=== PATIENT | male | born 1980 | race Caucasian/White ===

== ENCOUNTER 2016-06-30 13:44 | Emergency (ER) | payer OTHER ==
[2016-06-30 15:33] LABS: BASO # 0.1 K/mm3 (0.0-0.2); BASO % 1.6 % (0.0-1.0); EOS # 0.2 K/mm3 (0.0-0.50); EOS % 2.7 % (0.0-3.0); LARGE UNSTAINED CELL # 0.2 K/mm3 (0.0-0.4); LARGE UNSTAINED CELL % 3.4 % (0.0-4.0); LYMPH # 1.8 K/mm3 (1.5-4.5); LYMPH % 21.3 % (24.0-44.0); MEAN CORPUSCULAR HEMOGLOBIN 31.4 pg (27.0-33.0); MEAN CORPUSCULAR HGB CONC 33.2 g/dl (32.0-36.5); MEAN CORPUSCULAR VOLUME 94.5 fl (80.0-96.0); MONO # 0.6 K/mm3 (0.0-0.8); MONO % 8.7 % (0.0-5.0); NEUTROPHILS # 4.5 K/mm3 (1.8-7.7); NEUTROPHILS % 62.4 % (36.0-66.0); PLATELET COUNT, AUTOMATED 263 k/mm3 (150-450); RED CELL DISTRIBUTION WIDTH 13.9 % (11.5-14.5); WHITE BLOOD COUNT 7.1 K/mm3 (4.0-10.0)
--- NOTE | 2016-06-30 16:31 | EDDOCDS ---
Nurse's Notes [facility] Name: Jorge Elder Age: 35 yrs Sex: Male : 1980 Arrival Date: 06/30/2016 Time: 13:44 Bed PR Private MD: Unknown, Family Dr Diagnosis: Pruritus Presentation: 06/30 13:48 Presenting complaint: Patient states: Last couple of days was staying with a friend and [facility] has bug bites on head and legs. Onset: The symptoms/episode began/occurred 2 day(s) ago. This patient has not experienced a previous allergic reaction. Anaphylaxis evaluation, the patient reports or I have noted the following symptoms which indicate a significant risk of anaphylaxis: no signs or symptoms of anaphylaxis were noted. Adult Sepsis Screening: The patient does not have new or worsening altered mentation. Patient's respiratory rate is less than 22. Systolic blood pressure is greater than 100. Patient has a qSOFA score of 0- Negative Sepsis Screen. Suicide/Homicide risk assessment- the patient denies having any suicidal and/or homicidal ideations and does not present with any other emotional, behavioral or mental health complaints. Status: Patient is not a business services officer or dependent. Transition of care: patient was not received from another setting of care. 13:48 Acuity: KIM Level 4 [facility] 13:48 Method Of Arrival: Walkin/Carried/Asstd [facility] Triage Assessment: 13:50 General: Appears in no apparent distress, Behavior is cooperative. Pain: Denies pain. [facility] HIV screening NA for this visit Offered previously. Neurological: No deficits noted. Respiratory: Airway is patent Respiratory effort is even, unlabored, Reports no respiratory complaints. Derm: Skin is pink, warm & dry. Rash noted that is red, raised, on head. Historical: - Allergies: no known allergies; - Home Meds: 1. none - PMHx: none; - PSHx: Hernia repair; - Social history: Smoking status: Patient uses tobacco products, light tobacco smoker. No barriers to communication noted, The patient speaks fluent Brazilian. - Family history: Not pertinent. - : The pt / caregiver states he / she is not on anticoagulants. Home medication list is obtained from the patient. - Exposure Risk Screening:: None identified. Screenin:27 Screening information is obtained from the patient. Fall risk: No risks identified. dls Assistance ADL's: requires no assistance with activities of daily living. Abuse/DV Screen: The patient / caregiver reports he/she is: not in a situation that causes fear, pain or injury. Nutritional screening: No deficits noted. Advance Directives: Currently, there is no health care proxy. There is no active DNR order. There is no living will. There is no Power of Warehouse Production Worker. Advance directive information has not previously been placed in an [facility] medical record. home support is adequate. Assessment: 16:27 Respiratory: No deficits noted. dls 16:28 General: Appears in no apparent distress, Behavior is cooperative. Pain: Denies pain. dls Awake, alert, oriented. Skin warm and dry. Moves all extremities. Bilateral breath sounds clear. Respirations unlabored. Abdomen soft, non-tender. No apparent distress. The patient / caregiver is instructed regarding the plan of care and ED course. Physical assessment to be completed by KAMARI/CHRISTINA. Vital Signs: 13:46 BP 156 / 90; Pulse 101; Resp 18 S; Temp 97.1; Pulse Ox 100% on R/A; Weight 77.11 kg dd6 (R); Height 5 ft. 10 in. (177.80 cm) (R); 13:46 Body Mass Index 24.39 (77.11 kg, 177.80 cm) dd6 Vitals: 13:46 Log In Time: June 30, 2016 at 13:44. dd6 ED Course: 13:46 Patient visited by Cayetano Eaton PCA. dd6 13:46 Unknown, Family Dr is Private Physician. dd6 13:46 Patient moved to Waiting dd6 13:47 Patient moved to Pre RCE dd6 13:49 Triage Initiated mcp 13:50 Patient visited by Graciela Krishna RN. [facility] 14:53 Patient moved to Triage 1 dls 15:05 Tyler Hamilton PA-C is PHCP. jk8 15:06 Hitesh Gibson MD is Attending Physician. jk8 15:06 Patient visited by Tyler Hamilton PA-C. jk8 15:22 CBC with Diff Sent. ar3 15:23 Patient moved to TR3 ar3 16:21 Patient moved to PR2 / 26 jo3 16:27 The patient / caregiver is instructed regarding the plan of care and ED course. Patient dls has correct armband on for positive identification. Bed in low position. Call light in reach. 16:27 No IV's were initiated during this patient's visit. No procedures done that require dls assistance. Order Results: Lab Order: CBC with Diff; SPEC'M 06/30/16 15:21 Test: WHITE BLOOD COUNT; Value: 7.1; Range: 4.0-10.0; Units: K/mm3; Status: F Test: RED BLOOD COUNT; Value: 4.53; Range: 4.30-6.10; Units: M/mm3; Status: F Test: HEMOGLOBIN; Value: 14.2; Range: 14.0-18.0; Units: g/dl; Status: F Test: HEMATOCRIT; Value: 42.8; Range: 42.0-52.0; Units: %; Status: F Test: MEAN CORPUSCULAR VOLUME; Value: 94.5; Range: 80.0-96.0; Units: fl; Status: F Test: MEAN CORPUSCULAR HEMOGLOBIN; Value: 31.4; Range: 27.0-33.0; Units: pg; Status: F Test: MEAN CORPUSCULAR HGB CONC; Value: 33.2; Range: 32.0-36.5; Units: g/dl; Status: F Test: RED CELL DISTRIBUTION WIDTH; Value: 13.9; Range: 11.5-14.5; Units: %; Status: F Test: PLATELET COUNT, AUTOMATED; Value: 263; Range: 150-450; Units: k/mm3; Status: F Test: NEUTROPHILS %; Value: 62.4; Range: 36.0-66.0; Units: %; Status: F Test: LYMPH %; Value: 21.3; Range: 24.0-44.0; Abnormal: Below low normal; Units: %; Status: F Test: MONO %; Value: 8.7; Range: 0.0-5.0; Abnormal: Above high normal; Units: %; Status: F Test: EOS %; Value: 2.7; Range: 0.0-3.0; Units: %; Status: F Test: BASO %; Value: 1.6; Range: 0.0-1.0; Abnormal: Above high normal; Units: %; Status: F Test: LARGE UNSTAINED CELL %; Value: 3.4; Range: 0.0-4.0; Units: %; Status: F Test: NEUTROPHILS #; Value: 4.5; Range: 1.8-7.7; Units: K/mm3; Status: F Test: LYMPH #; Value: 1.8; Range: 1.5-4.5; Units: K/mm3; Status: F Test: MONO #; Value: 0.6; Range: 0.0-0.8; Units: K/mm3; Status: F Test: EOS #; Value: 0.2; Range: 0.0-0.50; Units: K/mm3; Status: F Test: BASO #; Value: 0.1; Range: 0.0-0.2; Units: K/mm3; Status: F Test: LARGE UNSTAINED CELL #; Value: 0.2; Range: 0.0-0.4; Units: K/mm3; Status: F Outcome: 16:15 Discharge ordered by Provider. jk8 16:29 The following High Risk Discharge criteria are identified: None. Discharged to home dls ambulatory. Condition: stable. Discharge instructions given to patient, Instructed on discharge instructions, follow up and referral plans. medication usage, Demonstrated understanding of instructions, medications, Pt was receptive of discharge instructions/ teaching. Prescriptions given X 2. No special radiology studies were completed. 16:29 Discharge Assessment: Patient awake, alert and oriented x 3. No cognitive and/or dls functional deficits noted. Patient verbalized understanding of disposition instructions. patient administered narcotics - no. Property sent home with patient. 16:30 Patient left the ED. dls Signatures: Graciela Krishna RN RN mcp Scott, Debra, RN RN dls Helmerci, Jennifer, RN RN jo3 Cayetano Eaton, ASSISTANT FILM EDITOR ASSISTANT FILM EDITOR dd6 Mary Godinez, ASSISTANT FILM EDITOR ASSISTANT FILM EDITOR ar3 Tyler Hamilton PA-C PA-C jk8 MTDD
--- NOTE | 2016-06-30 16:31 | EDDOCDS ---
Physician Documentation [facility] Name: Jorge Elder Age: 35 yrs Sex: Male : 1980 Arrival Date: 06/30/2016 Time: 13:44 Bed PR Private MD: Unknown, Family Dr Disposition: 06/30/16 16:15 Discharged to Home/Self Care. Impression: Pruritus. - Condition is Stable. - Discharge Instructions: Scabies, Moderate Sedation. - Prescriptions for Elimite 5 % Topical Cream - apply 1 application by TOPICAL route one time Wash after 12 hours.; 60 gram. diphenhydramine HCl 50 mg Oral Capsule - take 1 capsule by ORAL route every 6 hours As needed; 30 capsule. - Medication Reconciliation, Local Pharmacy Hours form. - Follow up: Emergency Department; When: As soon as possible; Reason: Worsening of conditions. Follow up: Private Physician; When: 2 - 3 days; Reason: Recheck today's complaints. - Problem is new. - Symptoms are unchanged. Historical: - Allergies: no known allergies; - Home Meds: 1. none - PMHx: none; - PSHx: Hernia repair; - Social history: Smoking status: Patient uses tobacco products, light tobacco smoker. No barriers to communication noted, The patient speaks fluent Northern Irish. - Family history: Not pertinent. - : The pt / caregiver states he / she is not on anticoagulants. Home medication list is obtained from the patient. - Exposure Risk Screening:: None identified. Vital Signs: 06/30 13:46 BP 156 / 90; Pulse 101; Resp 18 S; Temp 97.1; Pulse Ox 100% on R/A; Weight 77.11 kg / dd6 170 lbs (R); Height 5 ft. 10 in. (177.80 cm) (R); 13:46 Body Mass Index 24.39 (77.11 kg, 177.80 cm) dd6 MDM: 15:14 CBC with Diff Ordered. EDMS 16:14 CBC with Diff Reviewed. jk8 16:27 Financial registration complete. kf3 Signatures: Dispatcher [employer] EDMS Graciela Krishna RN RN mcp Scott, Debra, RN RN dls FidElver calvo, Reg Reg kf3 Tyler Hamilton PA-C PA-C jk8 MTDD
--- NOTE | 2016-07-02 17:31 | EDDOCDS ---
Physician Documentation [facility] Name: Jorge Elder Age: 35 yrs Sex: Male : 1980 Arrival Date: 06/30/2016 Time: 13:44 Bed PR Private MD: Unknown, Family Dr Disposition: 06/30/16 16:15 Discharged to Home/Self Care. Impression: Pruritus. - Condition is Stable. - Discharge Instructions: Scabies, Moderate Sedation. - Prescriptions for Elimite 5 % Topical Cream - apply 1 application by TOPICAL route one time Wash after 12 hours.; 60 gram. diphenhydramine HCl 50 mg Oral Capsule - take 1 capsule by ORAL route every 6 hours As needed; 30 capsule. - Medication Reconciliation, Local Pharmacy Hours form. - Follow up: Emergency Department; When: As soon as possible; Reason: Worsening of conditions. Follow up: Private Physician; When: 2 - 3 days; Reason: Recheck today's complaints. - Problem is new. - Symptoms are unchanged. Historical: - Allergies: no known allergies; - Home Meds: 1. none - PMHx: none; - PSHx: Hernia repair; - Social history: Smoking status: Patient uses tobacco products, light tobacco smoker. No barriers to communication noted, The patient speaks fluent Salvadorean. - Family history: Not pertinent. - : The pt / caregiver states he / she is not on anticoagulants. Home medication list is obtained from the patient. - Exposure Risk Screening:: None identified. Vital Signs: 06/30 13:46 BP 156 / 90; Pulse 101; Resp 18 S; Temp 97.1; Pulse Ox 100% on R/A; Weight 77.11 kg / dd6 170 lbs (R); Height 5 ft. 10 in. (177.80 cm) (R); 13:46 Body Mass Index 24.39 (77.11 kg, 177.80 cm) dd6 MDM: 15:14 CBC with Diff Ordered. EDMS 16:14 CBC with Diff Reviewed. jk8 16:27 Financial registration complete. kf3 16:57 [facility] Payment Agreement was scanned into [employer] and attached to record. kf3 21:34 T-Sheet-- Draft Copy was scanned into [employer] and attached to record. klr Signatures: Dispatcher [employer] EDMS KrishnaGraciela RN RN mcp Scott, Debra, RN RN dls Fiddler, Kris, Reg Reg kf3 Tyler Hamilton PA-C PA-C jk8 Redder, Kathie klr The chart was reviewed and I authenticate all verbal orders and agree with the evaluation and treatment provided.Attachments: 16:57 [facility] Payment Agreement kf3 21:34 T-Sheet-- Draft Copy klr Chart Complete MTDD
--- NOTE | 2016-07-02 17:31 | EDDOCDS ---
Nurse's Notes [facility] Name: Jorge Elder Age: 35 yrs Sex: Male : 1980 Arrival Date: 06/30/2016 Time: 13:44 Bed PR Private MD: Unknown, Family Dr Diagnosis: Pruritus Presentation: 06/30 13:48 Presenting complaint: Patient states: Last couple of days was staying with a friend and [facility] has bug bites on head and legs. Onset: The symptoms/episode began/occurred 2 day(s) ago. This patient has not experienced a previous allergic reaction. Anaphylaxis evaluation, the patient reports or I have noted the following symptoms which indicate a significant risk of anaphylaxis: no signs or symptoms of anaphylaxis were noted. Adult Sepsis Screening: The patient does not have new or worsening altered mentation. Patient's respiratory rate is less than 22. Systolic blood pressure is greater than 100. Patient has a qSOFA score of 0- Negative Sepsis Screen. Suicide/Homicide risk assessment- the patient denies having any suicidal and/or homicidal ideations and does not present with any other emotional, behavioral or mental health complaints. Status: Patient is not a community service worker or dependent. Transition of care: patient was not received from another setting of care. 13:48 Acuity: KIM Level 4 [facility] 13:48 Method Of Arrival: Walkin/Carried/Asstd [facility] Triage Assessment: 13:50 General: Appears in no apparent distress, Behavior is cooperative. Pain: Denies pain. [facility] HIV screening NA for this visit Offered previously. Neurological: No deficits noted. Respiratory: Airway is patent Respiratory effort is even, unlabored, Reports no respiratory complaints. Derm: Skin is pink, warm & dry. Rash noted that is red, raised, on head. Historical: - Allergies: no known allergies; - Home Meds: 1. none - PMHx: none; - PSHx: Hernia repair; - Social history: Smoking status: Patient uses tobacco products, light tobacco smoker. No barriers to communication noted, The patient speaks fluent Monegasque. - Family history: Not pertinent. - : The pt / caregiver states he / she is not on anticoagulants. Home medication list is obtained from the patient. - Exposure Risk Screening:: None identified. Screenin:27 Screening information is obtained from the patient. Fall risk: No risks identified. dls Assistance ADL's: requires no assistance with activities of daily living. Abuse/DV Screen: The patient / caregiver reports he/she is: not in a situation that causes fear, pain or injury. Nutritional screening: No deficits noted. Advance Directives: Currently, there is no health care proxy. There is no active DNR order. There is no living will. There is no Power of Partition Notcher. Advance directive information has not previously been placed in an [facility] medical record. home support is adequate. Assessment: 16:27 Respiratory: No deficits noted. dls 16:28 General: Appears in no apparent distress, Behavior is cooperative. Pain: Denies pain. dls Awake, alert, oriented. Skin warm and dry. Moves all extremities. Bilateral breath sounds clear. Respirations unlabored. Abdomen soft, non-tender. No apparent distress. The patient / caregiver is instructed regarding the plan of care and ED course. Physical assessment to be completed by KAMARI/CHRISTINA. Vital Signs: 13:46 BP 156 / 90; Pulse 101; Resp 18 S; Temp 97.1; Pulse Ox 100% on R/A; Weight 77.11 kg dd6 (R); Height 5 ft. 10 in. (177.80 cm) (R); 13:46 Body Mass Index 24.39 (77.11 kg, 177.80 cm) dd6 Vitals: 13:46 Log In Time: June 30, 2016 at 13:44. dd6 ED Course: 13:46 Patient visited by Cayetano Eaton PCA. dd6 13:46 Unknown, Family Dr is Private Physician. dd6 13:46 Patient moved to Waiting dd6 13:47 Patient moved to Pre RCE dd6 13:49 Triage Initiated mcp 13:50 Patient visited by Graciela Krishna RN. [facility] 14:53 Patient moved to Triage 1 dls 15:05 Tyler Hamilton PA-C is PHCP. jk8 15:06 Hitesh Gibson MD is Attending Physician. jk8 15:06 Patient visited by Tyler Hamilotn PA-C. jk8 15:22 CBC with Diff Sent. ar3 15:23 Patient moved to TR3 ar3 16:21 Patient moved to PR2 / 26 jo3 16:27 The patient / caregiver is instructed regarding the plan of care and ED course. Patient dls has correct armband on for positive identification. Bed in low position. Call light in reach. 16:27 No IV's were initiated during this patient's visit. No procedures done that require dls assistance. 16:55 Patient name changed from Jorge\Frederick\\S\Compoli\S\ to Jorge\S\Josue\S\Compoli. EDMS 16:57 [facility] Payment Agreement was scanned into [employer] and attached to record. kf3 21:34 T-Sheet-- Draft Copy was scanned into [employer] and attached to record. klr Order Results: Lab Order: CBC with Diff; SPEC'M 06/30/16 15:21 Test: WHITE BLOOD COUNT; Value: 7.1; Range: 4.0-10.0; Units: K/mm3; Status: F Test: RED BLOOD COUNT; Value: 4.53; Range: 4.30-6.10; Units: M/mm3; Status: F Test: HEMOGLOBIN; Value: 14.2; Range: 14.0-18.0; Units: g/dl; Status: F Test: HEMATOCRIT; Value: 42.8; Range: 42.0-52.0; Units: %; Status: F Test: MEAN CORPUSCULAR VOLUME; Value: 94.5; Range: 80.0-96.0; Units: fl; Status: F Test: MEAN CORPUSCULAR HEMOGLOBIN; Value: 31.4; Range: 27.0-33.0; Units: pg; Status: F Test: MEAN CORPUSCULAR HGB CONC; Value: 33.2; Range: 32.0-36.5; Units: g/dl; Status: F Test: RED CELL DISTRIBUTION WIDTH; Value: 13.9; Range: 11.5-14.5; Units: %; Status: F Test: PLATELET COUNT, AUTOMATED; Value: 263; Range: 150-450; Units: k/mm3; Status: F Test: NEUTROPHILS %; Value: 62.4; Range: 36.0-66.0; Units: %; Status: F Test: LYMPH %; Value: 21.3; Range: 24.0-44.0; Abnormal: Below low normal; Units: %; Status: F Test: MONO %; Value: 8.7; Range: 0.0-5.0; Abnormal: Above high normal; Units: %; Status: F Test: EOS %; Value: 2.7; Range: 0.0-3.0; Units: %; Status: F Test: BASO %; Value: 1.6; Range: 0.0-1.0; Abnormal: Above high normal; Units: %; Status: F Test: LARGE UNSTAINED CELL %; Value: 3.4; Range: 0.0-4.0; Units: %; Status: F Test: NEUTROPHILS #; Value: 4.5; Range: 1.8-7.7; Units: K/mm3; Status: F Test: LYMPH #; Value: 1.8; Range: 1.5-4.5; Units: K/mm3; Status: F Test: MONO #; Value: 0.6; Range: 0.0-0.8; Units: K/mm3; Status: F Test: EOS #; Value: 0.2; Range: 0.0-0.50; Units: K/mm3; Status: F Test: BASO #; Value: 0.1; Range: 0.0-0.2; Units: K/mm3; Status: F Test: LARGE UNSTAINED CELL #; Value: 0.2; Range: 0.0-0.4; Units: K/mm3; Status: F Outcome: 16:15 Discharge ordered by Provider. jk8 16:29 The following High Risk Discharge criteria are identified: None. Discharged to home dls ambulatory. Condition: stable. Discharge instructions given to patient, Instructed on discharge instructions, follow up and referral plans. medication usage, Demonstrated understanding of instructions, medications, Pt was receptive of discharge instructions/ teaching. Prescriptions given X 2. No special radiology studies were completed. 16:29 Discharge Assessment: Patient awake, alert and oriented x 3. No cognitive and/or dls functional deficits noted. Patient verbalized understanding of disposition instructions. patient administered narcotics - no. Property sent home with patient. 16:30 Patient left the ED. dls Signatures: Dispatcher [employer] EDAL Graciela Krishna RN RN mcp Scott, Debra, RN RN dls Helmerci, Jennifer, RN RN jo3 Elver Naylor, Reg Reg kf3 Cayetano Eaton, BLUNGER BLUNGER dd6 Mary Godinez, BLUNGER BLUNGER ar3 Tyler Hamilton PA-C PA-C jk8 Nathaly Almaraz Chart Complete MTDD
--- NOTE | 2016-07-02 17:31 | EDDOCDS ---
Physician Documentation [facility] Name: Jorge Elder Age: 35 yrs Sex: Male : 1980 Arrival Date: 06/30/2016 Time: 13:44 Bed PR Private MD: Unknown, Family Dr Disposition: 06/30/16 16:15 Discharged to Home/Self Care. Impression: Pruritus. - Condition is Stable. - Discharge Instructions: Scabies, Moderate Sedation. - Prescriptions for Elimite 5 % Topical Cream - apply 1 application by TOPICAL route one time Wash after 12 hours.; 60 gram. diphenhydramine HCl 50 mg Oral Capsule - take 1 capsule by ORAL route every 6 hours As needed; 30 capsule. - Medication Reconciliation, Local Pharmacy Hours form. - Follow up: Emergency Department; When: As soon as possible; Reason: Worsening of conditions. Follow up: Private Physician; When: 2 - 3 days; Reason: Recheck today's complaints. - Problem is new. - Symptoms are unchanged. Historical: - Allergies: no known allergies; - Home Meds: 1. none - PMHx: none; - PSHx: Hernia repair; - Social history: Smoking status: Patient uses tobacco products, light tobacco smoker. No barriers to communication noted, The patient speaks fluent Libyan. - Family history: Not pertinent. - : The pt / caregiver states he / she is not on anticoagulants. Home medication list is obtained from the patient. - Exposure Risk Screening:: None identified. Vital Signs: 06/30 13:46 BP 156 / 90; Pulse 101; Resp 18 S; Temp 97.1; Pulse Ox 100% on R/A; Weight 77.11 kg / dd6 170 lbs (R); Height 5 ft. 10 in. (177.80 cm) (R); 13:46 Body Mass Index 24.39 (77.11 kg, 177.80 cm) dd6 MDM: 15:14 CBC with Diff Ordered. EDMS 16:14 CBC with Diff Reviewed. jk8 16:27 Financial registration complete. kf3 16:57 [facility] Payment Agreement was scanned into [employer] and attached to record. kf3 21:34 T-Sheet-- Draft Copy was scanned into [employer] ([employer] and attached to record. klr Signatures: Dispatcher [employer] EDMS KrishnaGraciela RN RN mcp Scott, Debra, RN RN dls Fiddler, Kris, Reg Reg kf3 Tyler Hamilton PA-C PA-C jk8 Redder, Kathie klr The chart was reviewed and I authenticate all verbal orders and agree with the evaluation and treatment provided.Attachments: 16:57 [facility] Payment Agreement kf3 21:34 T-Sheet-- Draft Copy klr Chart Complete MTDD
== END 2016-06-30 16:30 | disposition home or self-care (01) ==
LOC: M ED 13:44
DX: L29.9 Pruritus, unspecified (principal); F17.210 Nicotine dependence, cigarettes, uncomplicated

== ENCOUNTER 2016-07-01 03:29 | Emergency (ER) | payer OTHER ==
--- NOTE | 2016-07-01 07:53 | EDDOCDS ---
Nurse's Notes [facility] Name: Jorge Elder Age: 35 yrs Sex: Male : 1980 Arrival Date: 07/01/2016 Time: 03:29 Bed 9 Private MD: Diagnosis: Anxiety disorder, unspecified;Rash and other nonspecific skin eruption Presentation: 07/01 03:50 Presenting complaint: Patient states: i was here earlier and they gave me stuff for cz scablies. pt states he used the medications prescribed but still has bugs states they are long and in scalp and eyebrows. Adult Sepsis Screening: The patient does not have new or worsening altered mentation. Patient's respiratory rate is less than 22. Systolic blood pressure is greater than 100. Patient has a qSOFA score of 0- Negative Sepsis Screen. Suicide/Homicide risk assessment- the patient denies having any suicidal and/or homicidal ideations and does not present with any other emotional, behavioral or mental health complaints. Status: Patient is not a banking services advisor or dependent. Transition of care: patient was not received from another setting of care. 03:50 Acuity: KIM Level 5 cz 03:50 Method Of Arrival: Walkin/Carried/Asstd cz Triage Assessment: 03:51 General: Appears in no apparent distress. Pain: Denies pain. HIV screening NA for this cz visit Offered previously. Historical: - Allergies: No known drug Allergies; - Home Meds: 1. none - PMHx: none; - PSHx: hernia repair; - Social history: Smoking status: Patient uses tobacco products, light tobacco smoker. No barriers to communication noted, The patient speaks fluent Swiss, Speaks appropriately for age. - Family history: Not pertinent. - : The pt / caregiver states he / she is not on anticoagulants. Home medication list is obtained from the patient. - Exposure Risk Screening:: None identified. Screenin:37 Screening information is obtained from the patient. Fall risk: No risks identified. jp6 Assistance ADL's: requires no assistance with activities of daily living. Abuse/DV Screen: The patient / caregiver reports he/she is: not in a situation that causes fear, pain or injury. Nutritional screening: No deficits noted. Advance Directives: Currently, there is no health care proxy. There is no active DNR order. There is no living will. home support is adequate. Assessment: 06:37 General: Appears distressed, well developed, well nourished, Behavior is anxious, jp6 appropriate for age, cooperative. Pain: Denies pain. Neurological: Level of Consciousness is awake, alert, Oriented to person, place, time. EENT: No deficits noted. Cardiovascular: No deficits noted. Respiratory: No deficits noted. GI: No deficits noted. : No deficits noted. Derm: Skin is intact, Skin is dry, Skin is pink, warm & dry. Skin temperature is warm multiple bite like areas on head. Musculoskeletal: No deficits noted. 07:50 Reassessment: Patient appears in no apparent distress at this time. Patient denies pain bcj at this time. Patient states feeling better. Patient states symptoms have improved. Vital Signs: 03:51 BP 160 / 81; Pulse 98; Resp 16; Temp 97.1(T); Pulse Ox 100% on R/A; Weight 77.11 kg; cz Height 5 ft. 10 in. (177.80 cm); 03:51 Body Mass Index 24.39 (77.11 kg, 177.80 cm) cz Vitals: 03:51 Log In Time: July 01, 2016 at 03:33. cz ED Course: 03:32 Patient visited by Lori Pérez Reg. hs2 03:32 Patient moved to Waiting hs2 03:39 Patient moved to Triage 1 cz 03:51 Triage Initiated cz 03:54 Patient moved to Pre RCE cz 05:18 [facility] Payment Agreement was scanned into [employer] and attached to record. [facility] 06:22 Patient moved to 9 cz 06:23 Patient visited by Clair Cooper PCA. carlin 06:26 Nanda Nicole,RN is Primary Nurse. jp6 06:37 The patient / caregiver is instructed regarding the plan of care and ED course. jp6 07:09 Jay Kim PA-C is PHCP. ar2 07:09 Jessica Teran MD is Attending Physician. ar2 07:17 Patient visited by Jay Kim PA-C. ar2 07:26 Primary Nurse role handed off by Nanda Nicole,IVET deg 07:50 No apparent distress. Resting quietly. Awaiting disposition. bcj 07:50 No IV's were initiated during this patient's visit. No procedures done that require bcj assistance. 07:52 Patient visited by Pieter Garcia, RN. bcj Order Results: There are currently no results for this order. Outcome: 07:31 Discharge ordered by Provider. ar2 07:50 Discharge Assessment: patient administered narcotics - no. The following High Risk bcj Discharge criteria are identified: None. Discharged to home ambulatory. Condition: stable. Discharge instructions given to patient, Instructed on discharge instructions, follow up and referral plans. medication usage. No special radiology studies were completed. Property :Personal belongings accompany Pt. 07:52 Patient left the ED. bcj Signatures: Maddy Kellogg, Roll Capper Unit deg Pieter Garcia, RN RN bcGilberto Russ RN RN cz Jay Kim, PA-C PA-Roxanne ar2 Clair Cooper, GILES PLAYGROUND SUPERVISOR Yadi Waggoner [facility] Lori Pérez, Reg Reg hs2 Nanda Nicole,RN RN jp6 Corrections: (The following items were deleted from the chart) 03:53 03:51 PSHx: none; cz cz MTDD
--- NOTE | 2016-07-01 07:53 | EDDOCDS ---
Physician Documentation [facility] Name: Jorge Elder Age: 35 yrs Sex: Male : 1980 Arrival Date: 07/01/2016 Time: 03:29 Bed 9 Private MD: Disposition: 07/01/16 07:31 Discharged to Home/Self Care. Impression: Anxiety disorder, unspecified, Rash and other nonspecific skin eruption. - Condition is Stable. - Discharge Instructions: Rash, Generalized Anxiety Disorder. - Medication Reconciliation, Local Pharmacy Hours form. - Follow up: Private Physician; When: Call to arrange an appointment; Reason: Recheck today's complaints, Continuance of care. - Problem is new. - Symptoms are unchanged. - Notes: recommend following up with your clinic upon returning home. return to ER if you develop worsening rash, swelling or severe itching. recommend discussing with your physician need to resume anxiety medications. Historical: - Allergies: No known drug Allergies; - Home Meds: 1. none - PMHx: none; - PSHx: hernia repair; - Social history: Smoking status: Patient uses tobacco products, light tobacco smoker. No barriers to communication noted, The patient speaks fluent Yoruba, Speaks appropriately for age. - Family history: Not pertinent. - : The pt / caregiver states he / she is not on anticoagulants. Home medication list is obtained from the patient. - Exposure Risk Screening:: None identified. Vital Signs: 07/01 03:51 BP 160 / 81; Pulse 98; Resp 16; Temp 97.1(T); Pulse Ox 100% on R/A; Weight 77.11 kg / cz 170 lbs; Height 5 ft. 10 in. (177.80 cm); 03:51 Body Mass Index 24.39 (77.11 kg, 177.80 cm) cz MDM: 05:18 [facility] Payment Agreement was scanned into [employer] and attached to record. [facility] 07:19 Financial registration complete. hs2 Signatures: Pieter Garcia, IVET RN Gilberto Cosby RN RN cz Jay Kim, PANorma PA-C ar2 Yadi Kamara [facility] Lori Pérez, Reg Reg hs2 Nanda Nicole,RN RN jp6 The chart was reviewed and I authenticate all verbal orders and agree with the evaluation and treatment provided.Corrections: (The following items were deleted from the chart) 03:53 03:51 PSHx: none; cz cz Attachments: 05:18 [facility] Payment Agreement [facility] MTDD
--- NOTE | 2016-07-03 08:53 | EDDOCDS ---
Physician Documentation [facility] Name: Jorge Elder Age: 35 yrs Sex: Male : 1980 Arrival Date: 07/01/2016 Time: 03:29 Bed 9 Private MD: Disposition: 07/01/16 07:31 Discharged to Home/Self Care. Impression: Anxiety disorder, unspecified, Rash and other nonspecific skin eruption. - Condition is Stable. - Discharge Instructions: Rash, Generalized Anxiety Disorder. - Medication Reconciliation, Local Pharmacy Hours form. - Follow up: Private Physician; When: Call to arrange an appointment; Reason: Recheck today's complaints, Continuance of care. - Problem is new. - Symptoms are unchanged. - Notes: recommend following up with your clinic upon returning home. return to ER if you develop worsening rash, swelling or severe itching. recommend discussing with your physician need to resume anxiety medications. Historical: - Allergies: No known drug Allergies; - Home Meds: 1. none - PMHx: none; - PSHx: hernia repair; - Social history: Smoking status: Patient uses tobacco products, light tobacco smoker. No barriers to communication noted, The patient speaks fluent Syriac, Speaks appropriately for age. - Family history: Not pertinent. - : The pt / caregiver states he / she is not on anticoagulants. Home medication list is obtained from the patient. - Exposure Risk Screening:: None identified. Vital Signs: 07/01 03:51 BP 160 / 81; Pulse 98; Resp 16; Temp 97.1(T); Pulse Ox 100% on R/A; Weight 77.11 kg / cz 170 lbs; Height 5 ft. 10 in. (177.80 cm); 03:51 Body Mass Index 24.39 (77.11 kg, 177.80 cm) cz MDM: 05:18 [facility] Payment Agreement was scanned into [employer] and attached to record. [facility] 07:19 Financial registration complete. hs2 14:38 T-Sheet-- Draft Copy was scanned into [employer] and attached to record. gb Signatures: Pieter Garcia RN RN Gilberto Cosby RN RN cz Enedina Dumont, Reg Reg gb Jay Kim, PANorma PANorma martinez2 Yadi Kamara [facility] Lori Pérez, Reg Reg hs2 Nanda Nicole,RN RN jp6 The chart was reviewed and I authenticate all verbal orders and agree with the evaluation and treatment provided.Corrections: (The following items were deleted from the chart) 03:53 03:51 PSHx: none; juice bose Attachments: 05:18 [facility] Payment Agreement [facility] 14:38 T-Sheet-- Draft Copy gb Chart Complete MTDD
--- NOTE | 2016-07-03 08:53 | EDDOCDS ---
Nurse's Notes [facility] Name: Jorge Elder Age: 35 yrs Sex: Male : 1980 Arrival Date: 07/01/2016 Time: 03:29 Bed 9 Private MD: Diagnosis: Anxiety disorder, unspecified;Rash and other nonspecific skin eruption Presentation: 07/01 03:50 Presenting complaint: Patient states: i was here earlier and they gave me stuff for cz scablies. pt states he used the medications prescribed but still has bugs states they are long and in scalp and eyebrows. Adult Sepsis Screening: The patient does not have new or worsening altered mentation. Patient's respiratory rate is less than 22. Systolic blood pressure is greater than 100. Patient has a qSOFA score of 0- Negative Sepsis Screen. Suicide/Homicide risk assessment- the patient denies having any suicidal and/or homicidal ideations and does not present with any other emotional, behavioral or mental health complaints. Status: Patient is not a maintenance service technician or dependent. Transition of care: patient was not received from another setting of care. 03:50 Acuity: KIM Level 5 cz 03:50 Method Of Arrival: Walkin/Carried/Asstd cz Triage Assessment: 03:51 General: Appears in no apparent distress. Pain: Denies pain. HIV screening NA for this cz visit Offered previously. Historical: - Allergies: No known drug Allergies; - Home Meds: 1. none - PMHx: none; - PSHx: hernia repair; - Social history: Smoking status: Patient uses tobacco products, light tobacco smoker. No barriers to communication noted, The patient speaks fluent Vietnamese, Speaks appropriately for age. - Family history: Not pertinent. - : The pt / caregiver states he / she is not on anticoagulants. Home medication list is obtained from the patient. - Exposure Risk Screening:: None identified. Screenin:37 Screening information is obtained from the patient. Fall risk: No risks identified. jp6 Assistance ADL's: requires no assistance with activities of daily living. Abuse/DV Screen: The patient / caregiver reports he/she is: not in a situation that causes fear, pain or injury. Nutritional screening: No deficits noted. Advance Directives: Currently, there is no health care proxy. There is no active DNR order. There is no living will. home support is adequate. Assessment: 06:37 General: Appears distressed, well developed, well nourished, Behavior is anxious, jp6 appropriate for age, cooperative. Pain: Denies pain. Neurological: Level of Consciousness is awake, alert, Oriented to person, place, time. EENT: No deficits noted. Cardiovascular: No deficits noted. Respiratory: No deficits noted. GI: No deficits noted. : No deficits noted. Derm: Skin is intact, Skin is dry, Skin is pink, warm & dry. Skin temperature is warm multiple bite like areas on head. Musculoskeletal: No deficits noted. 07:50 Reassessment: Patient appears in no apparent distress at this time. Patient denies pain bcj at this time. Patient states feeling better. Patient states symptoms have improved. Vital Signs: 03:51 BP 160 / 81; Pulse 98; Resp 16; Temp 97.1(T); Pulse Ox 100% on R/A; Weight 77.11 kg; cz Height 5 ft. 10 in. (177.80 cm); 03:51 Body Mass Index 24.39 (77.11 kg, 177.80 cm) cz Vitals: 03:51 Log In Time: July 01, 2016 at 03:33. cz ED Course: 03:32 Patient visited by Lori Pérez Reg. hs2 03:32 Patient moved to Waiting hs2 03:39 Patient moved to Triage 1 cz 03:51 Triage Initiated cz 03:54 Patient moved to Pre RCE cz 05:18 [facility] Payment Agreement was scanned into [employer] and attached to record. [facility] 06:22 Patient moved to 9 cz 06:23 Patient visited by Clair Cooper PCA. carlin 06:26 Nanda Nicole,RN is Primary Nurse. jp6 06:37 The patient / caregiver is instructed regarding the plan of care and ED course. jp6 07:09 Jay Kim PA-C is PHCP. ar2 07:09 Jessica Teran MD is Attending Physician. ar2 07:17 Patient visited by Jay Kim PA-C. ar2 07:26 Primary Nurse role handed off by Nanda Nicole,IVET deg 07:50 No apparent distress. Resting quietly. Awaiting disposition. bcj 07:50 No IV's were initiated during this patient's visit. No procedures done that require bcj assistance. 07:52 Patient visited by Pieter Garcia, RN. [facility] 14:38 T-Sheet-- Draft Copy was scanned into [employer] and attached to record. Order Results: There are currently no results for this order. Outcome: 07:31 Discharge ordered by Provider. ar2 07:50 Discharge Assessment: patient administered narcotics - no. The following High Risk bcj Discharge criteria are identified: None. Discharged to home ambulatory. Condition: stable. Discharge instructions given to patient, Instructed on discharge instructions, follow up and referral plans. medication usage. No special radiology studies were completed. Property :Personal belongings accompany Pt. 07:52 Patient left the ED. [facility] Signatures: Maddy Kellogg, Plastic Fixture Builder Unit deg Pieter Garcia, RN RN Gilberto Cosby RN RN cz Enedina Dumont, Reg Reg gb Jay Kim, PANorma PANorma ar2 Clair Cooper, INSURANCE SALESPERSON INSURANCE SALESPERSON Yadi Waggoner Lori Gandara, Reg Reg hs2 Nanda Nicole,RN RN jp6 Corrections: (The following items were deleted from the chart) 03:53 03:51 PSHx: none; cz cz Chart Complete MTDD
--- NOTE | 2016-07-03 08:53 | EDDOCDS ---
Physician Documentation [facility] Name: Jorge Elder Age: 35 yrs Sex: Male : 1980 Arrival Date: 07/01/2016 Time: 03:29 Bed 9 Private MD: Disposition: 07/01/16 07:31 Discharged to Home/Self Care. Impression: Anxiety disorder, unspecified, Rash and other nonspecific skin eruption. - Condition is Stable. - Discharge Instructions: Rash, Generalized Anxiety Disorder. - Medication Reconciliation, Local Pharmacy Hours form. - Follow up: Private Physician; When: Call to arrange an appointment; Reason: Recheck today's complaints, Continuance of care. - Problem is new. - Symptoms are unchanged. - Notes: recommend following up with your clinic upon returning home. return to ER if you develop worsening rash, swelling or severe itching. recommend discussing with your physician need to resume anxiety medications. Historical: - Allergies: No known drug Allergies; - Home Meds: 1. none - PMHx: none; - PSHx: hernia repair; - Social history: Smoking status: Patient uses tobacco products, light tobacco smoker. No barriers to communication noted, The patient speaks fluent Georgian, Speaks appropriately for age. - Family history: Not pertinent. - : The pt / caregiver states he / she is not on anticoagulants. Home medication list is obtained from the patient. - Exposure Risk Screening:: None identified. Vital Signs: 07/01 03:51 BP 160 / 81; Pulse 98; Resp 16; Temp 97.1(T); Pulse Ox 100% on R/A; Weight 77.11 kg / cz 170 lbs; Height 5 ft. 10 in. (177.80 cm); 03:51 Body Mass Index 24.39 (77.11 kg, 177.80 cm) cz MDM: 05:18 [facility] Payment Agreement was scanned into [employer] and attached to record. [facility] 07:19 Financial registration complete. hs2 14:38 T-Sheet-- Draft Copy was scanned into [employer] and attached to record. gb Signatures: Pieter Garcia RN RN Gilberto Cosby RN RN cz Enedina Dumont, Reg Reg gb Jay Kim, PANorma PANorma martinez2 Yadi Kamara [facility] Lori Pérez, Reg Reg hs2 Nanda Nicole,RN RN jp6 The chart was reviewed and I authenticate all verbal orders and agree with the evaluation and treatment provided.Corrections: (The following items were deleted from the chart) 03:53 03:51 PSHx: none; juice bose Attachments: 05:18 [facility] Payment Agreement [facility] 14:38 T-Sheet-- Draft Copy gb Chart Complete MTDD
== END 2016-07-01 07:52 | disposition home or self-care (01) ==
LOC: M ED 03:29
DX: F41.9 Anxiety disorder, unspecified (principal); R21 Rash and other nonspecific skin eruption; F17.210 Nicotine dependence, cigarettes, uncomplicated

== ENCOUNTER 2016-12-06 02:19 | Emergency (ER) | payer MEDICAID, OTHER ==
[~2016-12-06] VITALS: Ht 175.3 cm; Wt 76.6 kg
[2016-12-06 02:29] VITALS: BP 122/66
[2016-12-06] MEDS ORDERED: ISOVUE-370 76% 100ML VIAL (Q9967) As Ordered ONE (02:48)
--- NOTE | 2016-12-06 03:16 | REP ---
Clinical: Trauma . Comparison: None . Findings: The ventricles, sulci, and cisterns are normal in position and appearance. Bullard-white differentiation is maintained. No acute intracranial hemorrhage, mass/mass effect, pathology or trauma/injury. No evidence for acute infarction. No extra-axial fluid collection. Calvarium is intact. Fluid and opacification involving the left maxillary and ethmoid sinuses as well as comminuted fractures involving the ethmoid air cells nasal bones and nasal septum appreciated. Impression: Normal noncontrast head CT. Acute facial trauma including nasal bone and nasal septum fractures. No evidence for acute intracranial pathology or trauma/injury. Signed by Austen Whiting MD 12/06/2016 03:08 A
[2016-12-06 03:17] LABS: BASO # 0.1 K/mm3 (0.0-0.2); BASO % 0.9 % (0.0-1.0); EOS # 0.2 K/mm3 (0.0-0.50); EOS % 3.2 % (0.0-3.0); LARGE UNSTAINED CELL # 0.2 K/mm3 (0.0-0.4); LARGE UNSTAINED CELL % 2.6 % (0.0-4.0); LYMPH % 24.3 % (24.0-44.0); MEAN CORPUSCULAR HEMOGLOBIN 31.5 pg (27.0-33.0); MEAN CORPUSCULAR HGB CONC 33.8 g/dl (32.0-36.5); MEAN CORPUSCULAR VOLUME 93.2 fl (80.0-96.0); MONO # 0.6 K/mm3 (0.0-0.8); MONO % 7.3 % (0.0-5.0); NEUTROPHILS # 4.6 K/mm3 (1.8-7.7); NEUTROPHILS % 61.7 % (36.0-66.0); PLATELET COUNT, AUTOMATED 264 k/mm3 (150-450); RED CELL DISTRIBUTION WIDTH 13.1 % (11.5-14.5); WHITE BLOOD COUNT 7.5 K/mm3 (4.0-10.0)
--- NOTE | 2016-12-06 03:19 | REP ---
Clinical: Trauma. Technique: Axial noncontrast images from the skull base to the thoracic inlet with coronal and sagittal re-formations Findings: Normal alignment and lordosis is maintained. Cervical vertebral bodies including transverse processes and spinous processes are intact and there is no evidence for acute fracture / compression injury or subluxation. Spinal canal is patent. Posterior elements are intact. Paravertebral soft tissues are normal. Impression: Normal noncontrast cervical spine CT. No evidence for acute pathology or trauma/injury. Signed by Austen Whiting MD 12/06/2016 03:11 A
--- NOTE | 2016-12-06 03:28 | REP ---
Local: Trauma. Technique: Axial contrast enhanced images from the thoracic inlet to the upper abdomen using 100 ml of Isovue 370 intravenous contrast material with coronal and sagittal re-formations. Findings: Bilateral lung rgover are essentially well-aerated, symmetric and without consolidation/contusion, pleural effusion or pneumothorax. Minimal posterior basilar dependent changes are suggested. A very small 7 mm calcification in the deep left sulcus suggest prior granulomatous disease. Tracheobronchial tree is patent. The mediastinum demonstrates normal thoracic aorta, pulmonary vasculature and heart/pericardium. No evidence for adenopathy. No evidence for mediastinal or intrathoracic trauma. No obvious/displaced rib fracture. Thoracic vertebral bodies demonstrate normal alignment and without injury. Sternum appears intact. Impression: 1. Minimal posterior basilar dependent changes. 2. Calcification in the left deep sulcus consistent with prior granulomatous disease. 3. No evidence for acute mediastinal or pleuroparenchymal pathology, trauma or injury. Signed by Austen Whiting MD 12/06/2016 03:18 A
--- NOTE | 2016-12-06 03:34 | REP ---
Clinical: Trauma. Technique: Axial contrast enhanced images from the lung bases to the pubic symphysis using 100 ml Isovue 370 intravenous contrast material with coronal and sagittal re-formations. Findings: No evidence for solid organ injury. Liver, spleen, pancreas, gallbladder, bilateral adrenal glands and kidneys are normal. The enteric system is without obstruction or acute inflammatory process. Pelvis demonstrates normal bladder and age appropriate prostate/seminal vesicles. Abdominal aorta and vasculature is normal/intact. No pelvic fluid or ascites. No free air. No adenopathy. Surrounding musculoskeletal structures are intact. Lumbosacral spine demonstrates normal alignment and no evidence for acute fracture / compression injury or subluxation. Lung bases are clear. Impression: No evidence for acute intra-abdominal/pelvic pathology or trauma/injury. Signed by Austen Whiting MD 12/06/2016 03:24 A
[2016-12-06 03:35] LABS: ANION GAP 8 MEQ/L (8-16); BLOOD UREA NITROGEN 10 MG/DL (7-18); CALCIUM LEVEL 7.8 MG/DL (8.5-10.1); CARBON DIOXIDE LEVEL 26 MEQ/L (21-32); CHLORIDE LEVEL 108 MEQ/L (98-107); CREATININE FOR GFR 1.01 MG/DL (0.70-1.30); GLOMERULAR FILTRATION RATE > 60.0 (>60); GLUCOSE, FASTING 77 MG/DL (70-105); POTASSIUM SERUM 3.8 MEQ/L (3.5-5.1); SODIUM LEVEL 142 MEQ/L (136-145)
--- NOTE | 2016-12-06 03:43 | REP ---
Clinical: Trauma. Technique: Axial images through the maxillofacial region with coronal and sagittal re-formations. Findings: Comminuted fractures of the bilateral nasal bones mild angulation towards the left and subtle 2 mm of displacement of the right nasal bone fracture is identified along with a comminuted fracture of the nasal septum and possible subtle fractures through the ethmoid air cell struts. There is associated partial opacification through the nasal passages and ethmoid air cells along with minimal fluid in the left maxillary sinus and mild mucoperiosteal changes to the left maxillary sinus which may in part represent chronic sinus changes. The frontal, right maxillary, sphenoid sinuses and mastoid air cells are clear. Visualized portions of the mandible including bilateral temporomandibular joints, bilateral zygomatic arches and further visualized osseous structures appear intact. The bilateral orbits including globes and intraconal contents appear symmetric and relatively normal. Impression: Comminuted angulated fracture of the nasal bones towards the left side along with nasal septum fracture and possible fractures of the ethmoid air cell struts. Associated partial opacification of the nasal passages, ethmoid air cells and small amount of fluid in the left maxillary sinus noted. Signed by Austen Whiting MD 12/06/2016 03:35 A
== END 2016-12-06 03:56 | disposition home or self-care (01) ==
LOC: EDBD 02:19 → M ED 03:42
DX: F10.129 Alcohol abuse with intoxication, unspecified (principal); S02.2XXA Fracture of nasal bones, initial encounter for closed fracture; Y04.8XXA Assault by other bodily force, initial encounter; Y92.410 Unspecified street and highway as the place of occurrence of the external cause; Y93.89 Activity, other specified; Y99.8 Other external cause status

== ENCOUNTER 2017-05-15 17:02 | Emergency (ER) | payer OTHER ==
[~2017-05-15] VITALS: Ht 177.8 cm; Wt 77.3 kg
[2017-05-15] MEDS ORDERED: PERC5TAB12 PO (17:12)
[2017-05-15] MEDS ORDERED: NS 1,000 ML IV SCH (20:15)
--- NOTE | 2017-05-15 20:40 | REPUSA ---
CT of the cervical spine Clinical history: Pain. Technique: Multiple axial CT images were obtained through the cervical spine without administration o f contrast. Coronal and sagittal 3-D reconstructed images were also obtained. Comparison: None. Findings: The cervical vertebral bodies are in satisfactory positioning and alignment. No fractures or dislocat ions are demonstrated. The odontoid process is intact. Intervertebral disc spaces are well-maintained . There is no evidence of facet subluxation. The neural foramen appear grossly patent. The cervical c ranial junction is intact. The cervical spinal canal demonstrates normal caliber and contour without evidence of spinal stenosis. The surrounding soft tissues are within normal limits. Impression: Unremarkable CT examination of the cervical spine.
--- NOTE | 2017-05-15 20:40 | REPUSA ---
CT of the head Clinical history: syncope. Technique: Multiple axial CT images were obtained through the head without administration of contrast . Findings: The ventricles and sulci are symmetric bilaterally. There is no evidence of acute hemorrhag e or infarct. There is no midline shift, mass effect, or extra-axial fluid collection. The osseous st ructures are unremarkable. The visualized paranasal sinuses and mastoid air cells are clear. Impression: Negative study.
[2017-05-15 21:23] LABS: BASO # 0.1 10^3/uL (0.0-0.2); BASO % 0.5 % (0.0-1.0); EOS # 0.2 10^3/uL (0.0-0.50); EOS % 1.5 % (0.0-3.0); IMMATURE GRANULOCYTE % 0.2 % (0-0); LYMPH % 20.2 % (24.0-44.0); MEAN CORPUSCULAR HEMOGLOBIN 30.9 pg (27.0-33.0); MEAN CORPUSCULAR HGB CONC 32.9 g/dl (32.0-36.5); MONO % 9.9 % (0.0-5.0); NEUTROPHILS # 6.7 10^3/uL (1.8-7.7); NEUTROPHILS % 67.7 % (36.0-66.0); PLATELET COUNT, AUTOMATED 286 10^3/uL (150-450); RED CELL DISTRIBUTION WIDTH 12.4 % (11.5-14.5)
[2017-05-15 21:34] LABS: INR 0.98
[2017-05-15 21:57] LABS: ANION GAP 3 MEQ/L (8-16); BLOOD UREA NITROGEN 12 MG/DL (7-18); CALCIUM LEVEL 8.5 MG/DL (8.5-10.1); CARBON DIOXIDE LEVEL 30 MEQ/L (21-32); CHLORIDE LEVEL 105 MEQ/L (98-107); CREATININE FOR GFR 1.07 MG/DL (0.70-1.30); GLOMERULAR FILTRATION RATE > 60.0 (>60); GLUCOSE, FASTING 107 MG/DL (70-105); MAGNESIUM LEVEL 2.2 MG/DL (1.8-2.4); POTASSIUM SERUM 3.8 MEQ/L (3.5-5.1); SODIUM LEVEL 138 MEQ/L (136-145)
[2017-05-16 00:16] VITALS: BP 151/92
--- NOTE | 2017-05-16 02:50 | REP ---
Clinical: Trauma. Fall. . Technique: Internal rotation, external rotation, and Y view right shoulder . Findings: No acute fracture or dislocation. The acromioclavicular and glenohumeral joints are intact. No periarticular calcifications or degenerative changes are appreciated. Sub acromial space is normal. Surrounding soft tissues are unremarkable. Impression: Normal right shoulder radiographs. Signed by Austen Whiting MD 05/16/2017 02:42 A
--- NOTE | 2017-05-16 09:34 | ECGEPIP ---
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 Order Number: [id number] Reading MD: Hitesh Gibson Measurements Intervals [place] Rate: 65 P: -11 SC: 121 QRS: 84 QRSD: 98 T: 38 QT: 427 QTc: 445 Interpretive Statements SINUS RHYTHM NO PRIORS FOR COMPARISON Electronically Signed On 05-16-2017 9:34:18 EST by Hitesh Gibson
--- NOTE | 2017-05-16 09:37 | ECGEPIP ---
Stationary ECG Study 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 Order Number: [id number] Reading MD: Hitesh Gibson Measurements Intervals [place] Rate: 69 P: 60 IN: 149 QRS: 89 QRSD: 99 T: 43 QT: 424 QTc: 454 Interpretive Statements SINUS RHYTHM SIMILAR TO PRIOR ON SAME DATE Electronically Signed On 05-16-2017 9:37:32 EST by Hitesh Gibson
== END 2017-05-16 00:25 | disposition home or self-care (01) ==
LOC: M ED 17:02
DX: R55 Syncope and collapse (principal); S01.01XA Laceration without foreign body of scalp, initial encounter; S40.011A Contusion of right shoulder, initial encounter; F10.10 Alcohol abuse, uncomplicated; F14.10 Cocaine abuse, uncomplicated; F17.210 Nicotine dependence, cigarettes, uncomplicated; W18.39XA Other fall on same level, initial encounter; Y92.89 Other specified places as the place of occurrence of the external cause; Y99.9 Unspecified external cause status; Y93.9 Activity, unspecified

== ENCOUNTER → 2018-06-29 | Outpatient (CLI) | payer OTHER ==
[~2018-06-29] MED LIST: PERC5TAB12 PO
[2018-06-29 07:54] LABS: APPEARANCE, URINE CLEAR (CLEAR); BACTERIA, URINE AUTO NEGATIVE (NEGATIVE); BILIRUBIN, URINE AUTO NEGATIVE (NEGATIVE); BLOOD, URINE BLOOD NEGATIVE (NEGATIVE); COLOR, URINE YELLOW (YELLOW); GLUCOSE, URINE (UA) AUTO NEGATIVE (NEGATIVE); KETONE, URINE AUTO TRACE mg/dL (NEGATIVE); LEUKOCYTE ESTERASE, URINE AUTO NEGATIVE (NEGATIVE); MUCUS, URINE SMALL (NEGATIVE); NITRITE, URINE AUTO NEGATIVE (NEGATIVE); PROTEIN, URINE AUTO NEGATIVE (NEGATIVE); RBC, URINE AUTO 1 /HPF (0-3); SPECIFIC GRAVITY URINE AUTO 1.026 (1.002-1.035); SQUAMOUS EPITHELIAL CELL UR AU 0 /HPF (0-6); UROBILINOGEN, URINE AUTO 0.2 mg/dL (0.0-2.0); WBC, URINE AUTO 1 /HPF (0-3)
[2018-06-29 07:57] LABS: BASO # 0.1 10^3/uL (0.0-0.2); BASO % 0.8 % (0.0-1.0); EOS # 0.3 10^3/uL (0.0-0.50); HEMATOCRIT 46.7 % (42.0-52.0); HEMOGLOBIN 15.4 g/dl (13.5-17.5); LYMPH # 1.8 10^3/uL (1.5-4.5); LYMPH % 27.1 % (24.0-44.0); MEAN CORPUSCULAR HEMOGLOBIN 30.4 pg (27.0-33.0); MEAN CORPUSCULAR VOLUME 92.1 fl (80.0-96.0); MONO # 0.8 10^3/uL (0.0-0.8); MONO % 12.5 % (0.0-5.0); NEUTROPHILS # 3.6 10^3/uL (1.8-7.7); NEUTROPHILS % 54.3 % (36.0-66.0); PLATELET COUNT, AUTOMATED 238 10^3/uL (150-450); RED BLOOD COUNT 5.07 10^6/uL (4.30-6.10); WHITE BLOOD COUNT 6.6 10^3/uL (4.0-10.0)
[2018-06-29 08:16] LABS: ALBUMIN 4.3 GM/DL (3.2-5.2); ALT/SGPT 33 U/L (12-78); BILIRUBIN,TOTAL 0.3 MG/DL (0.2-1.0); BLOOD UREA NITROGEN 12 MG/DL (7-18); CALCIUM LEVEL 9.3 MG/DL (8.5-10.1); CARBON DIOXIDE LEVEL 29 MEQ/L (21-32); CHLORIDE LEVEL 105 MEQ/L (98-107); CREATININE FOR GFR 1.02 MG/DL (0.70-1.30); GLOMERULAR FILTRATION RATE > 60.0 (>60); GLUCOSE, FASTING 85 MG/DL (70-100); POTASSIUM SERUM 4.8 MEQ/L (3.5-5.1); SODIUM LEVEL 142 MEQ/L (136-145); TOTAL PROTEIN 7.2 GM/DL (6.4-8.2)
[2018-06-29 10:40] LABS: HEPATITIS B SURFACE ANTIBODY POSITIVE (POSITIVE)
[2018-06-29 10:51] LABS: HEPATITIS B SURFACE ANTIGEN NEGATIVE (NEGATIVE)
[2018-06-29 11:23] LABS: HEPATITIS C VIRUS ABY INDEX > 11.0 INDEX (<0.8)
== END ==
LOC: M LAB 07:18
PROVIDERS: ATTEND Physician Assistant Medical
DX: Z02.2 Encounter for examination for admission to residential institution (principal); R53.83 Other fatigue

== ENCOUNTER → 2020-09-04 | Outpatient (REF) | payer OTHER | LOC: M LAB REF 11:47 | PROVIDERS: ATTEND Surgery | DX: Z11.52 Encounter for screening for COVID-19 (principal) ==

== ENCOUNTER → 2021-10-29 | Outpatient (CLI) | payer MEDICAID | LOC: M OUTALCOH 08:01 | PROVIDERS: ATTEND Psychiatry & Neurology Psychiatry | DX: Z13.9 Encounter for screening, unspecified (principal) ==

== ENCOUNTER 2021-11-05 13:57 | Outpatient (RCR) | payer MEDICAID | END 2021-11-13 | LOC: M OUTALCOH 13:57 | PROVIDERS: ATTEND Psychiatry & Neurology Psychiatry | DX: F15.10 Other stimulant abuse, uncomplicated (principal); F14.10 Cocaine abuse, uncomplicated; Z72.0 Tobacco use ==

== ENCOUNTER 2025-02-28 20:23 | Emergency (ER) | payer MEDICAID ==
[~2025-02-28] VITALS: Ht 177.8 cm; Wt 69.2 kg
[2025-02-28] MEDS ORDERED: ISOVUE-370 76% 100 ML VIAL As Ordered ONE (20:40)
[2025-02-28] MEDS: TETANUS/DIPHTH/ACEL. PERTUSSIS 0.5 ML SYR IM.IMMUN ONE (20:59)
[2025-02-28 21:15] LABS: BASO # 0.1 10^3/uL (0.0-0.2); BASO % 0.7 % (0.0-1.0); EOS # 0.3 10^3/uL (0.0-0.5); EOS % 3.5 % (0.0-3.0); LYMPH # 2.1 10^3/uL (1.5-5.0); LYMPH % 23.3 % (24.0-44.0); MONO # 0.7 10^3/uL (0.0-0.8); MONO % 7.2 % (2.0-8.0); NEUTROPHILS # 5.9 10^3/uL (1.5-8.5); NEUTROPHILS % 64.6 % (36.0-66.0); PLATELET COUNT, AUTOMATED 222 10^3/uL (150-450)
[2025-02-28 21:25] LABS: INR 0.98
[2025-02-28] MEDS: ACETAMINOPHEN *IV* 1,000 MG in IV 1 EA IV ONE (21:29)
[2025-02-28 21:39] LABS: CK-MB VALUE MASS 1.4 NG/ML (<3.6); ETHYL ALCOHOL (ETHANOL) 0.164 % (0.000-0.010)
[2025-02-28 21:40] LABS: ALT/SGPT 16 U/L (7.0-40); AST/SGOT 20 U/L (<34); CALCIUM LEVEL 7.6 MG/DL (8.5-10.1); CARBON DIOXIDE LEVEL 26 MMOL/L (20-31); CHLORIDE LEVEL 105 MMOL/L (98-107); CPK CREATINE PHOSPHOKINASE 84 U/L (46-171); CREATININE FOR GFR 0.83 MG/DL (0.70-1.30); GLOMERULAR FILTRATION RATE > 90.0 (>60); MB/CK RELATIVE INDEX 1.66 (< OR =4); POTASSIUM SERUM 3.8 MMOL/L (3.5-5.1); SODIUM LEVEL 136 MMOL/L (136-145)
[2025-03-01] MEDS ORDERED: LIDOCAINE W/EPINEPHrine 1% 20 ML VIAL SC ONE (03:50)
[2025-03-01] MEDS: LIDOCAINE W/EPINEPHrine 1% 20 ML VIAL SC ONE (03:59)
[2025-03-01 04:17] LABS: APPEARANCE, URINE CLEAR (CLEAR); BACTERIA, URINE AUTO NEGATIVE (NEGATIVE); BILIRUBIN, URINE AUTO NEGATIVE (NEGATIVE); BLOOD, URINE BLOOD 1+ (NEGATIVE); GLUCOSE, URINE (UA) AUTO NEGATIVE (NEGATIVE); KETONE, URINE AUTO NEGATIVE (NEGATIVE); LEUKOCYTE ESTERASE, URINE AUTO NEGATIVE (NEGATIVE); NITRITE, URINE AUTO NEGATIVE (NEGATIVE); PROTEIN, URINE AUTO NEGATIVE (NEGATIVE); RBC, URINE AUTO 0 /HPF (0-3); SPECIFIC GRAVITY URINE AUTO 1.034 (1.002-1.035); SQUAMOUS EPITHELIAL CELL UR AU 0 /HPF (0-6); UROBILINOGEN, URINE AUTO 0.2 mg/dL (0.0-2.0); WBC, URINE AUTO 0 /HPF (0-3)
[2025-03-01 04:44] LABS: BARBITURATES URINE NEGATIVE (NEGATIVE); BENZODIAZEPINES URINE NEGATIVE (NEGATIVE); CANNABINOIDS URINE NEGATIVE (NEGATIVE); METHADONE URINE NEGATIVE (NEGATIVE); OPIATES URINE NEGATIVE (NEGATIVE); PHENCYCLIDINE URINE NEGATIVE (NEGATIVE)
[2025-03-01 04:46] LABS: AMPHETAMINES LEVEL URINE POSITIVE (NEGATIVE); COCAINE METABOLITE URINE POSITIVE (NEGATIVE)
[2025-03-01 05:15] VITALS: O2SAT 96
[2025-03-01] MEDS: DERMABOND TOPICAL SKIN ADHESIVE TOP ONE (05:21)
[2025-03-01 06:53] VITALS: BP 129/78; TEMP 98.5
== END 2025-03-01 06:55 | disposition home or self-care (01) ==
LOC: EDBD 20:23 → M ED 20:23
DX: S01.112A Laceration without foreign body of left eyelid and periocular area, initial encounter (principal); M25.512 Pain in left shoulder; Y92.019 Unspecified place in single-family (private) house as the place of occurrence of the external cause; Y93.9 Activity, unspecified; Y99.9 Unspecified external cause status; Y04.2XXA Assault by strike against or bumped into by another person, initial encounter; R00.0 Tachycardia, unspecified; I44.7 Left bundle-branch block, unspecified; F15.10 Other stimulant abuse, uncomplicated; F17.210 Nicotine dependence, cigarettes, uncomplicated; F10.10 Alcohol abuse, uncomplicated; Z23 Encounter for immunization; Z79.899 Other long term (current) drug therapy
CPT/HCPCS: 12011; 12052; 70450; 70486; 71045; 71260; 72125; 73030; 74177; 80047; 80048; 80076; 80307; 81001; 82077; 82150; 82550; 82553; 83605; 83690; 84484; 85025; 85610; 85730; 86850; 86900; 86901; 90471; 90715; 93005; 93041; 94760; 96372; 96374; 99285; J0131; Q9967

== ENCOUNTER 2025-03-09 17:13 | Emergency (ER) | payer MEDICAID ==
[~2025-03-09] VITALS: Ht 175.3 cm; Wt 71.1 kg
[2025-03-09 21:00] VITALS: BP 118/80; TEMP 97.8; O2SAT 96
== END 2025-03-09 21:17 | disposition home or self-care (01) ==
LOC: M ED 17:13
DX: Z48.02 Encounter for removal of sutures (principal); F17.210 Nicotine dependence, cigarettes, uncomplicated; Z79.899 Other long term (current) drug therapy